=== PATIENT | male | born 1970 | race Caucasian/White ===

== ENCOUNTER → 2018-12-19 | Outpatient (CLI) | payer SELFPAY | LOC: AMB 17:15 | PROVIDERS: ATTEND Nurse Practitioner | DX: R07.9 Chest pain, unspecified (principal); R79.89 Other specified abnormal findings of blood chemistry | CPT/HCPCS: A0425; A0426 ==

== ENCOUNTER → 2018-12-19 | Outpatient (CLI) | payer SELFPAY | LOC: AMB 11:01 | PROVIDERS: ATTEND Nurse Practitioner | DX: R07.9 Chest pain, unspecified (principal) | CPT/HCPCS: A0425; A0427 ==